=== PATIENT | male | born 1940 | race Caucasian/White ===

== ENCOUNTER → 2016-06-29 | Day surgery (SDC) | payer MEDICARE, OTHER ==
[~2016-06-29] VITALS: Ht 185.4 cm; Wt 95.6 kg
[~2016-06-29] MED LIST: ADVAIR 250-501 EACH INH; ALLEGRA180 MG PO; ASPIRIN EC81 MG PO; CRESTOR40 MG PO; FISH OIL 1,2001 EACH PO; HYTRIN UD5 MG PO; LOPRESSOR25 MG PO; MEN'S MULTI-VI1 EACH PO; NASONEX NASAL S17 GM NOSE; NITROSTAT0.4 MG SL; PRINIVIL (ZESTRI5 MG PO; ZETIA10 MG PO
== END | disposition disaster alternative care site (69) ==
LOC: GPOC 06-22 15:00 → GEND 07:42 → GPOC 08:00
PROC: 0DB48ZX Excision of Esophagogastric Junction, Via Natural or Artificial Opening Endoscopic, Diagnostic (ICD-10-PCS; principal; 2016-06-29)
DX: K31.89 Other diseases of stomach and duodenum (principal); Z85.01 Personal history of malignant neoplasm of esophagus; K21.9 Gastro-esophageal reflux disease without esophagitis; I25.10 Atherosclerotic heart disease of native coronary artery without angina pectoris; I10 Essential (primary) hypertension; Z79.51 Long term (current) use of inhaled steroids; Z79.899 Other long term (current) drug therapy
CPT/HCPCS: J2001; J7030